=== PATIENT | female | born 1945 | race Caucasian/White ===

== ENCOUNTER 2016-07-07 13:37 | Outpatient (CLI) | payer OTHER ==
--- NOTE | 2016-07-07 14:44 | DIAGNOSTIC IMAGING REPORT ---
PROCEDURE: XR CERVICAL SPINE 4 OR 5 VIEW INDICATION: CERVICALGIA TECHNIQUE: Five views. COMPARISON: None. FINDINGS: There is severe spondylosis at C3-4, 4/5, and 5/6. On the right there is neural foraminal impingement at C 34, 4-5, 5-6. On the left there is neural foraminal impingement at C 5/6. Osteophytic ridges are also present at all three levels. IMPRESSION: 1. Spondylosis C3-C6, worse on the right.
--- NOTE | 2016-07-10 11:05 | DIAGNOSTIC IMAGING REPORT ---
PROCEDURE: MG BILATERAL SCREENING W/CAD INDICATION: SCREENING . Family history of breast cancer (mother, grandmother, sister and daughter) TECHNIQUE: Bilateral CC and MLO digital views. COMPARISON: Mammogram 04/19/2014. FINDINGS: Computer-aided detection applied. Mild dense. No change. IMPRESSION: 1. Negative mammogram RESULT CODE: 1- Negative. A. A negative report should not delay biopsy if a dominant or clinically suspicious mass is present. 10-15% of cancers are not identified by x-ray. B. A negative report may reinforce clinical impression. C. Adenosis and dense breasts may obscure an underlying neoplasm. D. False positive reports average 6-10%. E.. A yearly screening mammogram is recommended. A reminder letter will be scheduled.
== END 2016-07-07 23:00 ==
LOC: XR SRH 13:37
DX: Z12.31 Encounter for screening mammogram for malignant neoplasm of breast (principal); M47.812 Spondylosis without myelopathy or radiculopathy, cervical region; Z80.3 Family history of malignant neoplasm of breast